=== PATIENT | female | born 1980 | race Native Hawaiian/Other Pacific Islander ===

== ENCOUNTER 2016-12-10 11:50 | Inpatient (IN) | payer OTHER ==
[2016-12-10] VITALS (14 sets, daily range): BP systolic 92–154; BP diastolic 55–90
[~2016-12-10] VITALS: Ht 162.6 cm; Wt 134.3 kg
[~2016-12-10 11:50] MED LIST: ALBU18HF2 IH; ALLO100T PO; ASPI81TA2 PO; CANA100T PO; CHOL10002 PO; FURO40TA5 PO; LOSA50TA21 PO; METO50TA3 PO; NIFE30TA26 PO; POTA8TAB8 PO; PRAM0.253 PO; TRAM50TA2 PO
[2016-12-10] MEDS ORDERED: ALBUTEROL FS 2.5 MG/3 ML VIAL.NEB CONTNEB ONE (12:00)
[2016-12-10] MEDS ORDERED: IPRATROPIUM NEB FS 0.5 MG/2.5 ML AMPUL.NEB NEB ONE (12:00)
[2016-12-10] MEDS ORDERED: ALBUTEROL FS 2.5 MG/3 ML VIAL.NEB ONE (12:12)
[2016-12-10] MEDS ORDERED: IPRATROPIUM NEB FS 0.5 MG/2.5 ML AMPUL.NEB ONE (12:13)
[2016-12-10] MEDS ORDERED: FUROSEMIDE 40 MG/4 ML VIAL ONE ×2 (12:13→12:16)
[2016-12-10 12:20] LABS: BASOPHILS # (AUTO) 0.1 /CMM (0.0-0.2); BASOPHILS % (AUTO) 0.5 % (0.0-2.0); DIFF TOTAL % 100 %; EOSINOPHILS # (AUTO) 0.6 /CMM (0.0-0.7); HEMATOCRIT 45 % (33-45); HEMOGLOBIN 13.4 g/dL (11.5-14.8); LYMPHOCYTES # (AUTO) 1.4 /CMM (0.8-4.8); LYMPHOCYTES % (AUTO) 12.3 % (20.0-44.0); MEAN CORPUSCULAR HEMOGLOBIN 22 PG (26.0-33.0); MEAN CORPUSCULAR HGB CONC 30 g/dl (31.0-36.0); MEAN CORPUSCULAR VOLUME 75 fL (82-100); MONOCYTES # (AUTO) 0.9 /CMM (0.1-1.30); NEUTROPHILS # (AUTO) 8.1 /CMM (1.8-8.9); NEUTROPHILS % (AUTO) 74.2 % (43.0-81.0); PLATELET COUNT (AUTO) 265 /CMM (150-450); RED BLOOD CELL COUNT(AUTO) 6.03 MIL/uL (4.0-5.2); WHITE BLOOD COUNT (AUTO) 11.1 K/uL (4.3-11.0)
[2016-12-10] MEDS ORDERED: FUROSEMIDE 40 MG/4 ML VIAL IV ONE (12:30)
[2016-12-10 12:31] LABS: ANION GAP 11 (5-14); CALCIUM, SERUM 8.8 mg/dL (8.5-10.1); CARBON DIOXIDE 30 mmol/L (21-32); CHLORIDE 103 mmol/L (98-107); CREATININE 0.7 mg/dL (0.6-1.3); GFR 94 mL/min (>60); GLUCOSE 162 mg/dL (74-106); POTASSIUM 3.6 mmol/L (3.5-5.1); SODIUM SERUM 140 mmol/L (136-145); UREA NITROGEN, BLOOD 11 mg/dL (7-18)
[2016-12-10 12:34] LABS: INR 0.99 (0.87-1.13); PROTHROMBIN TIME 10.4 SECS (9.5-12.7)
[2016-12-10 12:38] LABS: TROPONIN I < 0.017 ng/mL (0.00-0.056)
[2016-12-10 12:43] LABS: ALANINE AMINOTRANSFERASE 19 U/L (12-78); ALBUMIN 3.6 g/dL (3.4-5.0); ASPARTATE AMINOTRANSFERASE 13 U/L (15-37); BILIRUBIN,DIRECT 0.1 mg/dL (0.0-0.2); BILIRUBIN,TOTAL 0.5 mg/dL (0.2-1.0); INDIRECT BILIRUBIN 0.4 mg/dL (0.0-1.1); TOTAL PROTEIN, SERUM 8.3 g/dL (6.4-8.2)
[2016-12-10] MEDS ORDERED: PRAM0.253 PO (12:45)
[2016-12-10] MEDS ORDERED: DAPA10TA PO (12:45)
[2016-12-10] MEDS ORDERED: FAMO20TA8 PO (12:45)
[2016-12-10] MEDS ORDERED: METF10002 PO (12:45)
[2016-12-10 12:53] LABS: ABG BASE EXCESS 2.6 mmol/L; ABG HCO3 28.7 mmol/L; ABG PCO2 50.4 mmHg (35.0-45.0); ABG PH 7.374 (7.350-7.450); ABG PO2 403.5 mmHg (75.0-100.0); ABG TOTAL HEMOGLOBIN 13.8 G/dL (12.0-16.0); ALLEN TEST Pass; AaDO2 259.1 mmHg; O2Hb 97.5 % (94.0-97.0)
[2016-12-10 13:13] LABS: LACTIC ACID 2.5 mmol/L (0.4-2.0)
[2016-12-10 13:18] LABS: *LACTIC ACID REFLEX FLAG YES
[2016-12-10] MEDS ORDERED: ONDANSETRON HCL/PF 4 MG/2 ML VIAL IVP PRN (15:00)
[2016-12-10] MEDS ORDERED: ALBUTEROL SULFATE 8 GM HFA.AER.AD IH PRN (15:00)
[2016-12-10] MEDS: TRAMADOL HCL 50 MG TABLET PO PRN (15:36)
[2016-12-10] MEDS: ENOXAPARIN SODIUM 40 MG/0.4 ML DISP.SYRIN SQ SCH (15:37)
[2016-12-10 15:59] LABS: ABG BASE EXCESS 5.9 mmol/L; ABG HCO3 31.6 mmol/L; ABG PCO2 50.3 mmHg (35.0-45.0); ABG PH 7.416 (7.350-7.450); ABG PO2 57.8 mmHg (75.0-100.0); ABG TOTAL HEMOGLOBIN 13.6 G/dL (12.0-16.0); ALLEN TEST Pass; AaDO2 198.6 mmHg; O2Hb 87.1 % (94.0-97.0)
[2016-12-10] MEDS: ALBUTEROL HALF STRENGTH 1.25 MG/3 ML VIAL.NEB NEB SCH ×3 (16:03→23:27)
[2016-12-10] MEDS: IPRATROPIUM NEB FS 0.5 MG/2.5 ML AMPUL.NEB NEB SCH ×3 (16:03→23:27)
[2016-12-10] MEDS: ACETAMINOPHEN 325 MG TABLET PO PRN (17:01)
[2016-12-10] MEDS: methylPREDNISolone SOD SUCC 125 MG/2ML VIAL IV SCH (17:02)
[2016-12-10] MEDS: METOPROLOL TARTRATE 50 MG TABLET PO SCH (17:02)
[2016-12-10] MEDS ORDERED: IV SET PRIMARY PUMP SET 1 EA INFUS.SET MC ONE (17:04)
[2016-12-10] MEDS: LEVOFLOXACIN 500 MG /D5W 100ML 100 ML IV SCH (17:07)
[2016-12-11] VITALS (17 sets, daily range): BP systolic 90–124; BP diastolic 5–90
[2016-12-11] MEDS: IPRATROPIUM NEB FS 0.5 MG/2.5 ML AMPUL.NEB NEB SCH ×6 (04:04→23:39)
[2016-12-11] MEDS: ALBUTEROL HALF STRENGTH 1.25 MG/3 ML VIAL.NEB NEB SCH ×6 (04:04→23:39)
[2016-12-11 04:54] LABS: ALBUMIN 3.4 g/dL (3.4-5.0); BILIRUBIN,TOTAL 0.5 mg/dL (0.2-1.0); CALCIUM, SERUM 8.5 mg/dL (8.5-10.1); CREATININE 0.9 mg/dL (0.6-1.3); PHOSPHORUS 4.6 mg/dL (2.5-4.9)
[2016-12-11 04:59] LABS: BASOPHILS % (AUTO) 0.4 % (0.0-2.0); DIFF TOTAL % 100 %; EOSINOPHILS % (AUTO) 0.1 % (0.0-6.0); HEMATOCRIT 43 % (33-45); HEMOGLOBIN 13.1 g/dL (11.5-14.8); LYMPHOCYTES % (AUTO) 9.6 % (20.0-44.0); MEAN CORPUSCULAR HEMOGLOBIN 23 PG (26.0-33.0); MEAN CORPUSCULAR HGB CONC 31 g/dl (31.0-36.0); MEAN CORPUSCULAR VOLUME 74 fL (82-100); MONOCYTES # (AUTO) 0.6 /CMM (0.1-1.30); MONOCYTES % (AUTO) 5.8 % (2.0-12.0); NEUTROPHILS # (AUTO) 9.2 /CMM (1.8-8.9); NEUTROPHILS % (AUTO) 84.1 % (43.0-81.0); PLATELET COUNT (AUTO) 297 /CMM (150-450); RED BLOOD CELL COUNT(AUTO) 5.83 MIL/uL (4.0-5.2); WHITE BLOOD COUNT (AUTO) 10.9 K/uL (4.3-11.0)
[2016-12-11 05:37] LABS: ANISOCYTOSIS 1+; HYPOCHROMASIA 1+
[2016-12-11 05:48] LABS: INR 0.96 (0.87-1.13); PROTHROMBIN TIME 10.4 SECS (9.5-12.7)
[2016-12-11] MEDS: TRAMADOL HCL 50 MG TABLET PO PRN (06:12)
[2016-12-11] MEDS: PANTOPRAZOLE 40 MG VIAL IV SCH (08:38)
[2016-12-11] MEDS: methylPREDNISolone SOD SUCC 125 MG/2ML VIAL IV SCH ×2 (08:38→17:05)
[2016-12-11] MEDS: ALLOPURINOL 100 MG TABLET PO SCH (08:38)
[2016-12-11] MEDS: LOSARTAN POTASSIUM 50 MG TABLET PO SCH (08:39)
[2016-12-11] MEDS: ASPIRIN 81 MG TAB.CHEW PO SCH (08:39)
[2016-12-11] MEDS: NIFEdipine XL (30MG) 30 MG TAB PO SCH (08:39)
[2016-12-11] MEDS: METOPROLOL TARTRATE 50 MG TABLET PO SCH ×2 (08:39→16:38)
[2016-12-11] MEDS ORDERED: DEXTROSE 50%-WATER 50 ML DISP.SYRIN IV PRN (10:00)
[2016-12-11] MEDS: BLOOD SUGAR DIAGNOSTIC 1 EACH STRIP IN SCH ×3 (11:37→22:59)
[2016-12-11] MEDS: INSULIN REGULAR, HUMAN 100 UNIT/ML 3 ML VIAL SQ PRN ×3 (11:39→22:59)
[2016-12-11] MEDS: LEVOFLOXACIN 500 MG /D5W 100ML 100 ML IV SCH (17:05)
[2016-12-11 19:16] LABS: BAND % (MANUAL) 1 % (0.0-5.0); EOSINOPHILS % (MANUAL) 0 % (0-4); LYMPHOCYTES % (MANUAL) 8 % (16-48)
[2016-12-11 19:17] LABS: BASOPHILS % (MANUAL) 0 % (0.0-2.0); PLATELET ESTIMATE ADEQUATE
[2016-12-11] MEDS: FUROSEMIDE 40 MG TABLET PO SCH (20:17)
[2016-12-11] MEDS: ENOXAPARIN SODIUM 40 MG/0.4 ML DISP.SYRIN SQ SCH (20:20)
[2016-12-11] MEDS: ACETAMINOPHEN 325 MG TABLET PO PRN (22:59)
[2016-12-12] VITALS (15 sets, daily range): BP systolic 95–140; BP diastolic 48–78
[2016-12-12] MEDS: ALBUTEROL HALF STRENGTH 1.25 MG/3 ML VIAL.NEB NEB SCH ×6 (03:56→23:29)
[2016-12-12] MEDS: IPRATROPIUM NEB FS 0.5 MG/2.5 ML AMPUL.NEB NEB SCH ×6 (03:56→23:29)
[2016-12-12 05:28] LABS: CALCIUM, SERUM 8.5 mg/dL (8.5-10.1); CREATININE 0.9 mg/dL (0.6-1.3); PHOSPHORUS 4.2 mg/dL (2.5-4.9); POTASSIUM 4.1 mmol/L (3.5-5.1)
[2016-12-12 05:39] LABS: BASOPHILS % (AUTO) 0.3 % (0.0-2.0); DIFF TOTAL % 100 %; HEMATOCRIT 39 % (33-45); HEMOGLOBIN 12.1 g/dL (11.5-14.8); LYMPHOCYTES # (AUTO) 1.7 /CMM (0.8-4.8); LYMPHOCYTES % (AUTO) 12.3 % (20.0-44.0); MEAN CORPUSCULAR HEMOGLOBIN 23 PG (26.0-33.0); MEAN CORPUSCULAR HGB CONC 31 g/dl (31.0-36.0); MEAN CORPUSCULAR VOLUME 74 fL (82-100); MONOCYTES % (AUTO) 7.8 % (2.0-12.0); NEUTROPHILS # (AUTO) 10.7 /CMM (1.8-8.9); NEUTROPHILS % (AUTO) 79.6 % (43.0-81.0); PLATELET COUNT (AUTO) 306 /CMM (150-450); RED BLOOD CELL COUNT(AUTO) 5.36 MIL/uL (4.0-5.2); WHITE BLOOD COUNT (AUTO) 13.4 K/uL (4.3-11.0)
[2016-12-12 06:17] LABS: ANISOCYTOSIS 1+; BASOPHILS % (MANUAL) 0 % (0.0-2.0); EOSINOPHILS % (MANUAL) 0 % (0-4); HYPOCHROMASIA 1+; LYMPHOCYTES % (MANUAL) 11 % (16-48); PLATELET ESTIMATE ADEQUATE
[2016-12-12] MEDS: PANTOPRAZOLE 40 MG VIAL IV SCH (08:48)
[2016-12-12] MEDS: BLOOD SUGAR DIAGNOSTIC 1 EACH STRIP IN SCH ×4 (08:48→21:53)
[2016-12-12] MEDS: LOSARTAN POTASSIUM 50 MG TABLET PO SCH (08:49)
[2016-12-12] MEDS: FUROSEMIDE 40 MG TABLET PO SCH ×2 (08:49→16:16)
[2016-12-12] MEDS: ALLOPURINOL 100 MG TABLET PO SCH (08:49)
[2016-12-12] MEDS: methylPREDNISolone SOD SUCC 125 MG/2ML VIAL IV SCH ×2 (08:49→16:16)
[2016-12-12] MEDS: NIFEdipine XL (30MG) 30 MG TAB PO SCH (08:49)
[2016-12-12] MEDS: ASPIRIN 81 MG TAB.CHEW PO SCH (08:49)
[2016-12-12 11:11] LABS: ABG BASE EXCESS 5.6 mmol/L; ABG HCO3 33.1 mmol/L; ABG PCO2 61.8 mmHg (35.0-45.0); ABG PH 7.347 (7.350-7.450); ABG PO2 64.7 mmHg (75.0-100.0); ABG TOTAL HEMOGLOBIN 13.4 G/dL (12.0-16.0); ALLEN TEST Pass; AaDO2 178.6 mmHg; O2Hb 89.2 % (94.0-97.0)
[2016-12-12] MEDS: INSULIN REGULAR, HUMAN 100 UNIT/ML 3 ML VIAL SQ PRN ×3 (11:54→21:54)
[2016-12-12] MEDS: TRAMADOL HCL 50 MG TABLET PO PRN ×2 (16:16→22:25)
[2016-12-12] MEDS: LEVOFLOXACIN 500 MG /D5W 100ML 100 ML IV SCH (16:40)
[2016-12-12] MEDS: ENOXAPARIN SODIUM 40 MG/0.4 ML DISP.SYRIN SQ SCH (21:55)
[2016-12-13] VITALS: BP_SYST 140; BP_DIAS 53; BP_DIAS 63
[2016-12-13] MEDS: IPRATROPIUM NEB FS 0.5 MG/2.5 ML AMPUL.NEB NEB SCH ×6 (03:10→23:24)
[2016-12-13] MEDS: ALBUTEROL HALF STRENGTH 1.25 MG/3 ML VIAL.NEB NEB SCH ×6 (03:10→23:24)
[2016-12-13 04:00] VITALS: BP 123/75
[2016-12-13] MEDS: BLOOD SUGAR DIAGNOSTIC 1 EACH STRIP IN SCH ×4 (06:42→22:34)
[2016-12-13] MEDS: methylPREDNISolone SOD SUCC 125 MG/2ML VIAL IV SCH ×2 (08:42→17:22)
[2016-12-13] MEDS: ASPIRIN 81 MG TAB.CHEW PO SCH (08:42)
[2016-12-13] MEDS: ALLOPURINOL 100 MG TABLET PO SCH (08:42)
[2016-12-13] MEDS: FUROSEMIDE 40 MG TABLET PO SCH ×2 (08:42→17:23)
[2016-12-13] MEDS: PANTOPRAZOLE 40 MG VIAL IV SCH (08:42)
[2016-12-13] MEDS: LOSARTAN POTASSIUM 50 MG TABLET PO SCH (08:43)
[2016-12-13] MEDS: NIFEdipine XL (30MG) 30 MG TAB PO SCH (08:43)
[2016-12-13 09:59] VITALS: BP 121/70
[2016-12-13] MEDS: LEVOFLOXACIN 500 MG /D5W 100ML 100 ML IV SCH (17:24)
[2016-12-13] MEDS: INSULIN REGULAR, HUMAN 100 UNIT/ML 3 ML VIAL SQ PRN ×2 (17:32→22:37)
[2016-12-13] MEDS: ENOXAPARIN SODIUM 40 MG/0.4 ML DISP.SYRIN SQ SCH (22:00)
[2016-12-14] MEDS: ALBUTEROL HALF STRENGTH 1.25 MG/3 ML VIAL.NEB NEB SCH ×6 (03:29→23:04)
[2016-12-14] MEDS: IPRATROPIUM NEB FS 0.5 MG/2.5 ML AMPUL.NEB NEB SCH ×6 (03:30→23:04)
[2016-12-14 04:00] VITALS: BP 121/70
[2016-12-14 08:00] VITALS: BP 128/83
[2016-12-14] MEDS: PANTOPRAZOLE 40 MG VIAL IV SCH (08:51)
[2016-12-14] MEDS: ALLOPURINOL 100 MG TABLET PO SCH (08:52)
[2016-12-14] MEDS: FUROSEMIDE 40 MG TABLET PO SCH ×2 (08:52→17:07)
[2016-12-14] MEDS: LOSARTAN POTASSIUM 50 MG TABLET PO SCH (08:52)
[2016-12-14] MEDS: methylPREDNISolone SOD SUCC 125 MG/2ML VIAL IV SCH ×2 (08:52→17:08)
[2016-12-14] MEDS: ASPIRIN 81 MG TAB.CHEW PO SCH (08:53)
[2016-12-14] MEDS: NIFEdipine XL (30MG) 30 MG TAB PO SCH (08:53)
[2016-12-14] MEDS: BLOOD SUGAR DIAGNOSTIC 1 EACH STRIP IN SCH ×4 (08:53→21:58)
[2016-12-14] MEDS: INSULIN REGULAR, HUMAN 100 UNIT/ML 3 ML VIAL SQ PRN ×2 (12:43→22:00)
[2016-12-14 16:00] VITALS: BP 126/80
[2016-12-14] MEDS ORDERED: IV SET PRIMARY PUMP SET 1 EA INFUS.SET MC ONE (16:33)
[2016-12-14] MEDS: LEVOFLOXACIN 500 MG /D5W 100ML 100 ML IV SCH (17:08)
[2016-12-14 20:00] VITALS: BP 131/86
[2016-12-14] MEDS: ENOXAPARIN SODIUM 40 MG/0.4 ML DISP.SYRIN SQ SCH (21:46)
[2016-12-15] MEDS: IPRATROPIUM NEB FS 0.5 MG/2.5 ML AMPUL.NEB NEB SCH ×4 (03:30→14:38)
[2016-12-15] MEDS: ALBUTEROL HALF STRENGTH 1.25 MG/3 ML VIAL.NEB NEB SCH ×4 (03:30→14:38)
[2016-12-15] MEDS: TRAMADOL HCL 50 MG TABLET PO PRN (03:56)
[2016-12-15 04:00] VITALS: BP 140/86
[2016-12-15] MEDS ORDERED: SECONDARY IV SET 1 EA INFUS.SET MC ONE (04:41)
[2016-12-15] MEDS: BLOOD SUGAR DIAGNOSTIC 1 EACH STRIP IN SCH ×3 (06:41→17:01)
[2016-12-15 08:00] VITALS: BP 119/76
[2016-12-15] MEDS: methylPREDNISolone SOD SUCC 125 MG/2ML VIAL IV SCH ×2 (09:11→17:00)
[2016-12-15] MEDS: ASPIRIN 81 MG TAB.CHEW PO SCH (09:11)
[2016-12-15] MEDS: PANTOPRAZOLE 40 MG VIAL IV SCH (09:11)
[2016-12-15] MEDS: FUROSEMIDE 40 MG TABLET PO SCH ×2 (09:12→17:00)
[2016-12-15] MEDS: LOSARTAN POTASSIUM 50 MG TABLET PO SCH (09:12)
[2016-12-15] MEDS: NIFEdipine XL (30MG) 30 MG TAB PO SCH (09:12)
[2016-12-15] MEDS: ALLOPURINOL 100 MG TABLET PO SCH (09:12)
[2016-12-15] MEDS ORDERED: LEVO750T21 PO (11:20)
[2016-12-15] MEDS ORDERED: PRED20TA PO (11:20)
[2016-12-15 12:32] LABS: BASOPHILS # (AUTO) 0.2 /CMM (0.0-0.2); BASOPHILS % (AUTO) 0.9 % (0.0-2.0); DIFF TOTAL % 100 %; EOSINOPHILS # (AUTO) 0.1 /CMM (0.0-0.7); EOSINOPHILS % (AUTO) 0.3 % (0.0-6.0); HEMATOCRIT 44 % (33-45); HEMOGLOBIN 13.5 g/dL (11.5-14.8); LYMPHOCYTES # (AUTO) 1.8 /CMM (0.8-4.8); LYMPHOCYTES % (AUTO) 9.2 % (20.0-44.0); MEAN CORPUSCULAR HEMOGLOBIN 22 PG (26.0-33.0); MEAN CORPUSCULAR HGB CONC 31 g/dl (31.0-36.0); MEAN CORPUSCULAR VOLUME 72 fL (82-100); MONOCYTES % (AUTO) 4.9 % (2.0-12.0); NEUTROPHILS # (AUTO) 16.6 /CMM (1.8-8.9); NEUTROPHILS % (AUTO) 84.7 % (43.0-81.0); PLATELET COUNT (AUTO) 263 /CMM (150-450); RED BLOOD CELL COUNT(AUTO) 6.06 MIL/uL (4.0-5.2); WHITE BLOOD COUNT (AUTO) 19.5 K/uL (4.3-11.0)
[2016-12-15 12:55] LABS: BAND % (MANUAL) 1 % (0.0-5.0); LYMPHOCYTES % (MANUAL) 6 % (16-48); PLATELET ESTIMATE ADEQUATE
[2016-12-15 12:56] LABS: ANISOCYTOSIS 1+; HYPOCHROMASIA 1+
[2016-12-15 16:00] VITALS: BP 112/55
[2016-12-15] MEDS: LEVOFLOXACIN 500 MG /D5W 100ML 100 ML IV SCH (17:00)
== END 2016-12-15 17:25 | disposition home or self-care (01) | DRG 133 ==
LOC: ER 11:52 → ICU 13:28 → TELE1 12-12 17:50 → MEDSG1 12-14 09:05
PROVIDERS: ADMIT Internal Medicine; ATTEND Internal Medicine
PROC: 5A09357 Assistance with Respiratory Ventilation, Less than 24 Consecutive Hours, Continuous Positive Airway Pressure (ICD-10-PCS; principal; 2016-12-11)
PROC: 5A09357 Assistance with Respiratory Ventilation, Less than 24 Consecutive Hours, Continuous Positive Airway Pressure (ICD-10-PCS; 2016-12-12)
DX: J96.21 Acute and chronic respiratory failure with hypoxia (principal); E43 Unspecified severe protein-calorie malnutrition; I50.33 Acute on chronic diastolic (congestive) heart failure; E88.81 Metabolic syndrome and other insulin resistance; J44.0 Chronic obstructive pulmonary disease with (acute) lower respiratory infection; E11.9 Type 2 diabetes mellitus without complications; J96.22 Acute and chronic respiratory failure with hypercapnia; K21.9 Gastro-esophageal reflux disease without esophagitis; J44.1 Chronic obstructive pulmonary disease with (acute) exacerbation; J20.9 Acute bronchitis, unspecified; E78.5 Hyperlipidemia, unspecified; E66.2 Morbid (severe) obesity with alveolar hypoventilation; Z68.43 Body mass index [BMI] 50.0-59.9, adult; I11.0 Hypertensive heart disease with heart failure; J45.909 Unspecified asthma, uncomplicated; G25.81 Restless legs syndrome; M10.9 Gout, unspecified
CPT/HCPCS: 36415; 36600; 71010-TC; 80048-TC; 80053-TC; 80076-TC; 82962-TC; 83605-TC; 83735-TC; 83880; 84100-TC; 84484-TC; 85025-TC; 85610-TC; 85730-TC; 87040-TC; 87081-TC; 94799-TC; A4606; C9113; J1650; J1815; J1940; J1956; J2405; J2930; Z7610

== ENCOUNTER 2017-03-02 12:59 | Inpatient (IN) | payer OTHER ==
[~2017-03-02] VITALS: Ht 162.6 cm; Wt 134.4 kg
[~2017-03-02 12:59] MED LIST changes: -CANA100T PO; +DAPA10TA PO; +FAMO20TA8 PO; +LEVO750T21 PO; +METF10002 PO; +PRED20TA PO
--- NOTE | 2017-03-02 13:02 | NUR ---
PT TO ER BED 11 C/O WORSENING SOB X 3 DAYS. HX OF COPD AND CHF. PT ALSO C/O COUGH. EXPIRATORY WHEEZING NOTED UPON AUSCULTATION. GOWNED AND PLACED ON MONITOR. SATTING IN HIGH 80'S. PLACED ON O2@3L/MIN SATTING AT 92%. PT IS AAO, SPEAKING IN FULL SENTENCES. AWAITING MD CABRERA.
--- NOTE | 2017-03-02 13:18 | NUR ---
CHICHI NGUYEN AT BEDSIDE FOR EVAL.
[2017-03-02] MEDS ORDERED: Magnesium 1GM/D5W 100ML PREMIX 200 ML IV ONE ×2 (13:23→13:34)
[2017-03-02] MEDS ORDERED: methylPREDNISolone SOD SUCC 125 MG/2ML VIAL IV ONE (13:30)
[2017-03-02] MEDS ORDERED: ALBUTEROL FS 2.5 MG/3 ML VIAL.NEB CONTNEB ONE (13:30)
[2017-03-02] MEDS ORDERED: IV SET PRIMARY PUMP SET 1 EA INFUS.SET MC ONE (13:33)
[2017-03-02] MEDS ORDERED: methylPREDNISolone SOD SUCC 125 MG/2ML VIAL ONE (13:33)
[2017-03-02 13:36] LABS: BASOPHILS % (AUTO) 0.2 % (0.0-2.0); EOSINOPHILS # (AUTO) 0.2 /CMM (0.0-0.7); EOSINOPHILS % (AUTO) 1.6 % (0.0-6.0); HEMATOCRIT 43 % (33-45); HEMOGLOBIN 13.4 g/dL (11.5-14.8); LYMPHOCYTES # (AUTO) 0.9 /CMM (0.8-4.8); LYMPHOCYTES % (AUTO) 8.8 % (20.0-44.0); MEAN CORPUSCULAR HEMOGLOBIN 23 PG (26.0-33.0); MEAN CORPUSCULAR HGB CONC 32 g/dl (31.0-36.0); MEAN CORPUSCULAR VOLUME 74 fL (82-100); MONOCYTES # (AUTO) 1.3 /CMM (0.1-1.30); MONOCYTES % (AUTO) 12.6 % (2.0-12.0); NEUTROPHILS # (AUTO) 7.9 /CMM (1.8-8.9); NEUTROPHILS % (AUTO) 76.8 % (43.0-81.0); PLATELET COUNT (AUTO) 219 /CMM (150-450); RED BLOOD CELL COUNT(AUTO) 5.77 MIL/uL (4.0-5.2); WHITE BLOOD COUNT (AUTO) 10.3 K/uL (4.3-11.0)
--- NOTE | 2017-03-02 13:38 | NUR ---
RADIOLOGY AT BEDSIDE FOR CHEST XRAY.
[2017-03-02 13:48] LABS: CALCIUM, SERUM 8.8 mg/dL (8.5-10.1); CARBON DIOXIDE 28 mmol/L (21-32); CHLORIDE 99 mmol/L (98-107); CREATININE 0.9 mg/dL (0.6-1.3); GFR 70 mL/min (>60); GLUCOSE 144 mg/dL (74-106); POTASSIUM 3.5 mmol/L (3.5-5.1); SODIUM SERUM 136 mmol/L (136-145); UREA NITROGEN, BLOOD 14 mg/dL (7-18)
[2017-03-02] MEDS ORDERED: ALBUTEROL FS 2.5 MG/3 ML VIAL.NEB ONE ×2 (13:51→22:58)
[2017-03-02 13:55] LABS: TROPONIN I < 0.017 ng/mL (0.00-0.056)
[2017-03-02 13:56] LABS: INR 0.96 (0.87-1.13); PROTHROMBIN TIME 10.3 SECS (9.5-12.7)
[2017-03-02 13:59] LABS: ALANINE AMINOTRANSFERASE 35 U/L (12-78); ALBUMIN 3.7 g/dL (3.4-5.0); ALKALINE PHOSPHATASE 80 U/L (46-116); ASPARTATE AMINOTRANSFERASE 22 U/L (15-37); B-TYPE NATRIURETIC PEPTIDE 111 PG/ML (0-125); BILIRUBIN,DIRECT 0.4 mg/dL (0.0-0.2); BILIRUBIN,TOTAL 1.1 mg/dL (0.2-1.0); TOTAL PROTEIN, SERUM 8.5 g/dL (6.4-8.2)
[2017-03-02] MEDS ORDERED: IV NS 0.9% 500 ML BAG IV ONE (14:30)
[2017-03-02] MEDS ORDERED: LEVOFLOXACIN (750 MG) 750 MG TABLET PO STA (15:31)
[2017-03-02] MEDS ORDERED: ACETAMINOPHEN 325 MG TABLET PO STA (15:31)
[2017-03-02] MEDS ORDERED: LEVOFLOXACIN (750 MG) 750 MG TABLET ONE (15:33)
[2017-03-02] MEDS ORDERED: FUROSEMIDE 40 MG/4 ML VIAL ONE (15:34)
[2017-03-02] MEDS ORDERED: ACETAMINOPHEN ES 500 MG TABLET ONE (15:34)
--- NOTE | 2017-03-02 15:34 | NUR ---
PAGED DR CONTE PACKER FUSER FOR [facility]
[2017-03-02 15:58] LABS: ANISOCYTOSIS 1+; BAND % (MANUAL) 4 % (0.0-5.0); LYMPHOCYTES % (MANUAL) 17 % (16-48); MONOCYTES % (MANUAL) 9 % (0-11.0); NEUTROPHILS % (MANUAL) 70 (42-76); PLATELET ESTIMATE ADEQUATE
[2017-03-02] MEDS ORDERED: FUROSEMIDE 40 MG/4 ML VIAL IV ONE (16:00)
[2017-03-02] MEDS ORDERED: ACETAMINOPHEN 325 MG TABLET PO PRN (17:00)
[2017-03-02] MEDS ORDERED: ONDANSETRON HCL/PF 4 MG/2 ML VIAL IVP PRN (17:00)
--- NOTE | 2017-03-02 17:17 | NUR ---
PT ASSIGNED M/S [facility]
--- NOTE | 2017-03-02 18:04 | NUR ---
REPORT GIVEN TO HUSSEIN. PT AWAITING TRANSFER TO FLOOR.
--- NOTE | 2017-03-02 18:35 | NUR ---
MS RN NOTES RECEIVED PATIENT FROM ER VIA REBECCA DIAS. TRANSFERRED TO THE BED, PT IS C/O SOB, BREATHING TX GIVEN. WITH O2 AT 2LPM VIA NC. V/S CHECKED AND RECORDED. ENDORSED TO THE INTELLECTUAL PROPERTY LEGAL ASSISTANT FOR CONTINUITY OF CARE.
[2017-03-02] MEDS: IPRATROPIUM NEB FS 0.5 MG/2.5 ML AMPUL.NEB NEB SCH ×2 (18:47→19:30)
[2017-03-02] MEDS: ALBUTEROL FS 2.5 MG/0.5 ML VIAL.NEB NEB SCH ×2 (18:47→19:30)
[2017-03-02 18:50] VITALS: BP 142/61
[2017-03-02] MEDS: methylPREDNISolone SOD SUCC 125 MG/2ML VIAL IV SCH (19:15)
[2017-03-02] MEDS: FUROSEMIDE 40 MG TABLET PO SCH (19:15)
--- NOTE | 2017-03-02 20:15 | NUR ---
RN NOTE: PATIENT SITTING UP IN CHAIR, NO ACUTE DISTRESS NOTED. BREATHING EVEN AND LABORED, WITH SOB. PATIENT JUST FINISHED BREATHING TREATMENT. IV TO RIGHT UPPER ARM WAS ACCIDENTALLY PULLED OUT. REVIEWED ADMIT ORDERS AND PATIENT WAS TO BE ADMITTED TO TELE FLOOR AND TO CONTINUE WITH BIPAP AT BEDTIME. INFORMED NURSING LGSW THAT PATIENT SHOULD BE TRANSFERRED OFF MS FLOOR AND THAT NEEDS TO CONTINUE WITH BIPAP AND THAT NEEDS TO BE STARTED IN [facility]. CALLED [facility] TO CLARIFY ADMIT ORDER, SPOKE TO WAYLON COOPER NP AND INFORMED THAT PATIENT WAS ORDERED TO CONTINUE WITH BIPAP AND IF OK TO TRANSFER PATIENT TO [facility]. OK TO TRANSFER PATIENT TO [facility]. INFORMED NURSING LGSW ABOUT PATIENT NEEDING BIPAP AND TO BE IN [place] VERSUS TELE FLOOR. WILL CALL BACK WITH BED ASSIGNMENT. WILL CONTINUE TO MONITOR.
[2017-03-02] MEDS: ENOXAPARIN SODIUM 40 MG/0.4 ML DISP.SYRIN SQ SCH (21:20)
[2017-03-02] MEDS: ASPIRIN 81 MG TAB.CHEW PO SCH (21:20)
[2017-03-02] MEDS: FAMOTIDINE (20 MG) 20 MG TABLET PO SCH (21:21)
[2017-03-02] MEDS: PRAMIPEXOLE DI-HCL 0.25 MG TABLET PO SCH (21:21)
[2017-03-02] MEDS: METOPROLOL TARTRATE 50 MG TABLET PO SCH (21:21)
[2017-03-02] MEDS: ALLOPURINOL 100 MG TABLET PO SCH (21:21)
[2017-03-02] MEDS: LOSARTAN POTASSIUM 50 MG TABLET PO SCH (21:21)
[2017-03-02] MEDS: NIFEdipine XL (30MG) 30 MG TAB PO SCH (21:21)
[2017-03-02] MEDS: CHOLECALCIFEROL 1,000 UNIT TABLET (VIT D3) PO SCH (21:22)
[2017-03-02] MEDS: PANTOPRAZOLE 40 MG TABLET.DR PO SCH (21:22)
[2017-03-02] MEDS: GUAIFENESIN LA 600 MG TABLET.SA PO SCH ×2 (21:22→21:28)
--- NOTE | 2017-03-02 21:30 | NUR ---
RN NOTE: PATIENT 1700 MEDICATIONS ADMINISTERED PER MD ORDER. PATIENT WAS NOT ADMINISTERED ONTO FLOOR TILL 1835 AND PATIENT HAD NOT TAKEN ANY OF HER MEDICATIONS FOR TODAY. VITAL SIGNS STABLE, WILL CONTINUE TO MONITOR.
[2017-03-02] MEDS ORDERED: PRAMIPEXOLE DI-HCL 0.25 MG TABLET PO SCH (22:00)
--- NOTE | 2017-03-02 22:30 | NUR ---
RN NOTE: CALLED NURSING HORSER UP TO FOLLOW UP ON ROOM FOR PATIENT, PER QUYNH, PATIENT DOES NOT NEED TO BE IN IVDA TO INITIATE BIPAP IF PATIENT IS ALREADY ON BIPAP AT HOME. PER QUYNH, CONFIRMED WITH KRYSTINA THAT PATIENT CAN BE ON TELE ROOM. PATIENT ASSIGNED TO ROOM 312-1, REPORT GIVEN TO VADIM. PATIENT TRANSFERRED USING ACLS PROTOCOL WITHOUT COMPLICATIONS. CALLED RT JALEN TO INFORM TO START BIPAP FOR PATIENT IN ROOM 312-1.
--- NOTE | 2017-03-02 22:44 | NUR ---
RT NOTES: Breathing treatment given by the Nurse at 18:47 due to shortness of breath. Cancelled 19:30 treatment order due to early administration by the Nurse at 18:47.
[2017-03-02] MEDS ORDERED: ALBUTEROL FS 2.5 MG/3 ML VIAL.NEB NEB STA (22:57)
[2017-03-02] MEDS ORDERED: IPRATROPIUM NEB FS 0.5 MG/2.5 ML AMPUL.NEB NEB STA (22:57)
[2017-03-02] MEDS ORDERED: IPRATROPIUM NEB FS 0.5 MG/2.5 ML AMPUL.NEB ONE (22:58)
[2017-03-02 23:45] VITALS: BP 122/67
--- NOTE | 2017-03-03 00:17 | NUR ---
MICROBIOLOGY DIRECTOR OPENING OPENING NOTES RECEIVED PATIENT VIA ACLS PROTOCOL PATIENT IN BED, AWAKE/O X 4, AT 2230 03/02/17 WE PUT NEW IV SITE INTACT WITH NO S/S OF INFILTRATION NOTED IJ G 20 TOLERATED PROCEDURE WELL WITH GOOD BLOOD RETURN. NO S/S OF BLEEDING NOTED. NO S/S OF DISTRESS, NO C/O OF CHEST PAIN IN STABLE CONDITION. KEPT CLEAN DRY AND COMFORTABLE. SAFE HAZARD FREE ENVIRONMENT PROVIDED. WILL CONTINUE TO MONITOR PATIENT. PATIENT SET UP WITH BIPAP SETTING IPAP 1M H20, EPAP 5 CM H20 RATE 12 02 40% O2 SAT 96%, TOLERATED PATIENT IS SLEEPING NOW. BREATHING TREATMENT TOLERATED WELL. KEPT CLEAN AND DRY AND COMFORTABLE. ON TELE MONITOR ST Behzad MD MADE AWARE.
[2017-03-03] MEDS: ALBUTEROL FS 2.5 MG/0.5 ML VIAL.NEB NEB SCH ×4 (01:41→19:46)
[2017-03-03] MEDS: IPRATROPIUM NEB FS 0.5 MG/2.5 ML AMPUL.NEB NEB SCH ×4 (01:41→19:45)
[2017-03-03] MEDS: TRAMADOL HCL 50 MG TABLET PO PRN (01:42)
[2017-03-03 05:47] VITALS: BP 134/75
[2017-03-03 06:28] VITALS: BP 134/75
--- NOTE | 2017-03-03 06:29 | NUR ---
SAW REPAIRER CLOSING NOTES IN BED ASLEEP AND EASILY AWAKEN, SEMI FOWLERS POSITION, SKIN WARM AND DRY TO TOUCH, AFEBRILE, BREATHING TREATMENT TOLERATED WELL. ON BIPAP AT NIGHT WITH SETTINGS OF IPAP 10 CM H20 EPAP 5 CM H20 RATE 12 02 40 % NOW ON 3LPM VIA NC O2 SAT AT 94% ALL NURSING CARE NEEDS PROVIDED AND RENDERED, NEEDS ATTENDED AND ANTICIPATED, KEPT CLEAN AND DRY AND COMFORTABLE, BLADDER NOT DISTENDED, CONTINUE WITH CURRENT MEDICATION ORDERED, NO LATE ADVERSE REACTION NOTED/REPORTED. COOPERATIVE TO HER PLAN OF CARE. SAFE HAZARD FREE ENVIRONMENT MAINTAINED. ASSISTED REPOSITIONED EVERY 2 HOURS FOR SKIN MANAGEMENT AND COMFORT. GOOD SKIN CARE PROVIDED. ALL DUE MEDS WAS GIVEN. KEPT AT LOW BED. FREQUENT VISUAL CHECK FOR SAFETY. PLAN OF CARE ORDERED. CALL LIGHT ATTENDED PROMPTLY AND KEPT AT EASY REACH. WILL ENDORSE TO THE NEXT SHIFT CONTINUE PLAN OF CARE. VS STABLE
[2017-03-03 07:07] LABS: BASOPHILS % (AUTO) 0.4 % (0.0-2.0); HEMATOCRIT 43 % (33-45); HEMOGLOBIN 13.5 g/dL (11.5-14.8); LYMPHOCYTES # (AUTO) 0.8 /CMM (0.8-4.8); LYMPHOCYTES % (AUTO) 12.1 % (20.0-44.0); MEAN CORPUSCULAR HEMOGLOBIN 23 PG (26.0-33.0); MEAN CORPUSCULAR HGB CONC 31 g/dl (31.0-36.0); MEAN CORPUSCULAR VOLUME 74 fL (82-100); MONOCYTES # (AUTO) 0.9 /CMM (0.1-1.30); MONOCYTES % (AUTO) 13.5 % (2.0-12.0); NEUTROPHILS # (AUTO) 4.9 /CMM (1.8-8.9); PLATELET COUNT (AUTO) 191 /CMM (150-450); RED BLOOD CELL COUNT(AUTO) 5.81 MIL/uL (4.0-5.2); WHITE BLOOD COUNT (AUTO) 6.6 K/uL (4.3-11.0)
--- NOTE | 2017-03-03 07:15 | NUR ---
RN OPEN NOTES RECEIVED REPORT FROM STOCK RANCH SUPERVISOR NURSE. PATIENT IS IN BED, ALERT AND ORIENTED TO NAME, TIME AND PLACE. BED IS IN LOW POSITION, LOCKED AND 2 SIDE RAILS ARE UP. PATIENT IS WHEEZING, RT WAS NOTIFIED. WILL CONTINUE TO ASSESS AND MONITOR PATIENT.
[2017-03-03 08:00] VITALS: BP 107/64
[2017-03-03 08:21] LABS: ALBUMIN 3.5 g/dL (3.4-5.0); BILIRUBIN,TOTAL 0.8 mg/dL (0.2-1.0); CALCIUM, SERUM 8.4 mg/dL (8.5-10.1); CREATININE 0.9 mg/dL (0.6-1.3); MAGNESIUM 2.7 mg/dL (1.8-2.4); POTASSIUM 4.3 mmol/L (3.5-5.1); TOTAL PROTEIN, SERUM 8.5 g/dL (6.4-8.2)
[2017-03-03] MEDS: FAMOTIDINE (20 MG) 20 MG TABLET PO SCH (08:23)
[2017-03-03] MEDS: METOPROLOL TARTRATE 50 MG TABLET PO SCH ×2 (08:24→16:18)
[2017-03-03] MEDS: PANTOPRAZOLE 40 MG TABLET.DR PO SCH (08:25)
[2017-03-03] MEDS: ASPIRIN 81 MG TAB.CHEW PO SCH (08:25)
[2017-03-03] MEDS: CHOLECALCIFEROL 1,000 UNIT TABLET (VIT D3) PO SCH (08:26)
[2017-03-03] MEDS: ALLOPURINOL 100 MG TABLET PO SCH (08:26)
[2017-03-03] MEDS: LOSARTAN POTASSIUM 50 MG TABLET PO SCH (08:26)
[2017-03-03] MEDS: METFORMIN 500 MG TABLET PO SCH ×2 (08:26→16:17)
[2017-03-03] MEDS: FUROSEMIDE 40 MG TABLET PO SCH (08:27)
[2017-03-03] MEDS: GUAIFENESIN LA 600 MG TABLET.SA PO SCH ×2 (08:27→22:00)
[2017-03-03] MEDS: POTASSIUM CHLORIDE 10 MEQ TABLET.SA PO SCH ×2 (08:27→16:16)
[2017-03-03] MEDS: NIFEdipine XL (30MG) 30 MG TAB PO SCH (08:28)
[2017-03-03] MEDS: methylPREDNISolone SOD SUCC 125 MG/2ML VIAL IV SCH ×3 (08:28→16:16)
[2017-03-03 12:00] VITALS: BP 98/65
[2017-03-03] MEDS: FUROSEMIDE 40 MG/4 ML VIAL IV SCH ×2 (12:19→16:16)
[2017-03-03] MEDS ORDERED: DEXTROSE 50%-WATER 50 ML DISP.SYRIN IV PRN (15:30)
[2017-03-03 16:25] VITALS: BP 106/53
[2017-03-03] MEDS: BLOOD SUGAR DIAGNOSTIC 1 EACH STRIP VI SCH ×2 (17:00→22:15)
[2017-03-03] MEDS: INSULIN REGULAR, HUMAN 100 UNIT/ML 3 ML VIAL SQ PRN (17:11)
--- NOTE | 2017-03-03 19:01 | NUR ---
RN CLOSING NOTES PATIENT IS IN BED, ALERT AND ORIENTED TO NAME, TIME AND PLACE. BED IS IN LOW POSITION, LOCKED AND 2 SIDE RAILS ARE UP. NO SIGNS AND SYMPTOMS OF DISTRESS. DENIED PAIN. WILL ENDORSE TO ROTARY BAR OPERATOR NURSE.
--- NOTE | 2017-03-03 19:35 | NUR ---
TELE/RN NOTES RECEIVED PT. LYING IN BED. AWAKE, ALERT AND ORIENTED X4. BREATHING EVEN AND UNLABORED ON 3LPM O2 VIA NC. NO SOB, RESPIRATORY DISTRESS OR COMPLAINTS OF PAIN NOTED. PT. WITH EXTERNAL SAMPLE WASHER PRESENT AND INTACT. CURRENT RHYTHM = SINUS HR 86. PT. WITH RIGHT UPPER ARM MIDLINE PRESENT, PATENT AND INTACT. BED IN LOWEST POSITION, CALL LIGHT WITHIN REACH, WILL CONTINUE TO MONITOR.
[2017-03-03 20:00] VITALS: BP 102/51
[2017-03-03] MEDS: PRAMIPEXOLE DI-HCL 0.25 MG TABLET PO SCH (22:00)
[2017-03-03] MEDS: ENOXAPARIN SODIUM 40 MG/0.4 ML DISP.SYRIN SQ SCH (22:01)
[2017-03-03] MEDS: *INSULIN REGULAR(HUMULIN R)HUM 100 UNIT/ML VIAL SQ PRN (22:17)
[2017-03-04] VITALS (7 sets, daily range): BP systolic 102–132; BP diastolic 52–86
[2017-03-04] MEDS: TRAMADOL HCL 50 MG TABLET PO PRN ×2 (00:50→22:52)
[2017-03-04] MEDS: ALBUTEROL FS 2.5 MG/0.5 ML VIAL.NEB NEB SCH ×4 (01:13→19:53)
[2017-03-04] MEDS: IPRATROPIUM NEB FS 0.5 MG/2.5 ML AMPUL.NEB NEB SCH ×4 (01:13→19:53)
[2017-03-04] MEDS: BLOOD SUGAR DIAGNOSTIC 1 EACH STRIP VI SCH ×4 (06:52→21:11)
--- NOTE | 2017-03-04 07:50 | NUR ---
TELE/RN NOTES PT. LYING IN BED RESTING. BREATHING EVEN AND UNLABORED ON CPAP. NO SOB, RESPIRATORY DISTRESS OR COMPLAINTS OF PAIN NOTED. NO S/S OF HYPO/HYPERGLYCEMIA NOTED. PT. WITH EXTERNAL [employer] RETAILER SALES CONSULTANT PRESENT AND INTACT. CURRENT RHYTHM = SINUS HR 90. PT. WITH RIGHT UPPER ARM MIDLINE PRESENT, PATENT AND INTACT. ALL PT. NEEDS MET. BED IN LOWEST POSITION, CALL LIGHT WITHIN REACH, WILL ENDORSE TO DAYSHIFT NURSE FOR CONTINUITY OF CARE.
--- NOTE | 2017-03-04 08:00 | NUR ---
MOBILE SECURITY SPECIALIST NOTES PT IN BED, AWAKE, ALERT AND ORIENTED, NO COMPLAINT OF PAIN, RESPIRATIONS EVEN AND NOT LABORED, CALL LIGHT WITHIN REACH, NEEDS ATTENDED.
[2017-03-04] MEDS: INSULIN REGULAR, HUMAN 100 UNIT/ML 3 ML VIAL SQ PRN ×3 (08:03→16:56)
[2017-03-04] MEDS: methylPREDNISolone SOD SUCC 125 MG/2ML VIAL IV SCH ×3 (08:50→16:43)
[2017-03-04] MEDS: FUROSEMIDE 40 MG/4 ML VIAL IV SCH ×2 (08:50→16:43)
[2017-03-04] MEDS: NIFEdipine XL (30MG) 30 MG TAB PO SCH (08:51)
[2017-03-04] MEDS: ASPIRIN 81 MG TAB.CHEW PO SCH (08:51)
[2017-03-04] MEDS: CHOLECALCIFEROL 1,000 UNIT TABLET (VIT D3) PO SCH (08:51)
[2017-03-04] MEDS: POTASSIUM CHLORIDE 10 MEQ TABLET.SA PO SCH ×2 (08:52→16:45)
[2017-03-04] MEDS: ALLOPURINOL 100 MG TABLET PO SCH (08:52)
[2017-03-04] MEDS: METFORMIN 500 MG TABLET PO SCH ×2 (08:52→16:42)
[2017-03-04] MEDS: LOSARTAN POTASSIUM 50 MG TABLET PO SCH (08:53)
[2017-03-04] MEDS: FAMOTIDINE (20 MG) 20 MG TABLET PO SCH (08:53)
[2017-03-04] MEDS: GUAIFENESIN LA 600 MG TABLET.SA PO SCH ×2 (08:53→21:11)
[2017-03-04] MEDS: METOPROLOL TARTRATE 50 MG TABLET PO SCH ×2 (08:53→17:00)
[2017-03-04] MEDS: PANTOPRAZOLE 40 MG TABLET.DR PO SCH (08:53)
[2017-03-04 11:53] LABS: CALCIUM, SERUM 8.6 mg/dL (8.5-10.1); CREATININE 1.1 mg/dL (0.6-1.3)
--- NOTE | 2017-03-04 13:00 | NUR ---
CABLE MOCK UP ASSEMBLER NOTES PT IN BED, AWAKE, NO COMPLAINT AT THIS TIME, BREATHING TREATMENT GIVEN BY RT ORDERED, SEEN BY DR. CONTE, PLAN OF CARE EXPLAINED TO PT, VERBALIZED UNDERSTANDING, CALL LIGHT PLACED WITH REACH, NEEDS ATTENDED.
[2017-03-04] MEDS: LEVOFLOXACIN (500MG) 500 MG TABLET PO SCH (16:43)
--- NOTE | 2017-03-04 18:25 | NUR ---
ASSISTANT PROFESSOR NOTES PT IN BED, AWAKE, ALERT AND ORIENTED, VISITED BY FAMILY MEMBERS, NO COMPLAINT OF PAIN, RESPIRATIONS REGULAR AND NOT LABORED, PM MEDS GIVEN, BLOOD SUGAR CHECKED, INSULIN GIVEN PER SLIDING SCALE ORDERED, ALL NEEDS ATTENDED.
--- NOTE | 2017-03-04 20:00 | NUR ---
RECEIVED PATIENT UP IN CHAIR, ALERT AND ORIENTED X4, NO SOB, ON 2LPM VIA NC, 02 SAT 95%, DENIES ANY PAIN AT THIS TIME, ABLE TO TRANSFER TO BED AND CHAIR WITHOUT DIFFICULTY, NEEDS ATTENDED, CALL LIGHT WITHIN REACH.
[2017-03-04] MEDS: PRAMIPEXOLE DI-HCL 0.25 MG TABLET PO SCH (21:11)
[2017-03-04] MEDS: ENOXAPARIN SODIUM 40 MG/0.4 ML DISP.SYRIN SQ SCH (21:12)
[2017-03-04] MEDS: *INSULIN REGULAR(HUMULIN R)HUM 100 UNIT/ML VIAL SQ PRN (21:19)
--- NOTE | 2017-03-04 22:54 | NUR ---
NOTIFIED RT TO SET UP BIPAP. PATIENT COMPLAINING OF PAIN TO BACK OF NECK OF 8/10, GIVEN TRAMADOL, WILL CONTINUE TO MONITOR
[2017-03-05] VITALS: BP 114/68
[2017-03-05] MEDS: IPRATROPIUM NEB FS 0.5 MG/2.5 ML AMPUL.NEB NEB SCH ×3 (01:36→13:30)
[2017-03-05] MEDS: ALBUTEROL FS 2.5 MG/0.5 ML VIAL.NEB NEB SCH ×3 (01:36→13:43)
[2017-03-05 04:00] VITALS: BP 131/76
[2017-03-05] MEDS: BLOOD SUGAR DIAGNOSTIC 1 EACH STRIP VI SCH ×4 (06:20→21:28)
[2017-03-05] MEDS: INSULIN REGULAR, HUMAN 100 UNIT/ML 3 ML VIAL SQ PRN ×3 (06:26→17:34)
--- NOTE | 2017-03-05 06:26 | NUR ---
BG 116 MG/DL, NO INSULIN COVERAGE
--- NOTE | 2017-03-05 06:32 | NUR ---
PATIENT IS ALERT AND AWAKE, NO RESPIRATORY DISTRESS, ABLE TO AMBULATE WITHOUT DIFFICULTY, DENIES ANY PAIN AT THIS TIME, SLEPT FOR 6.5 HOURS, COMPLIANT WITH BIPAP DURING SLEEP, NO ADVERSE CHANGE OF CONDITION DURING SHIFT, ALL DUE MEDICATIONS GIVEN, CALL LIGHT WITHIN REACH.
--- NOTE | 2017-03-05 07:30 | NUR ---
SERVICE CORRESPONDENT NOTES PT IN BED, ASLEEP, EASY TO AROUSE, ALERT AND ORIENTED, NO COMPLAINT OF PAIN OR SHORTNESS OF BREATH, CALL LIGHT WITHIN REACH, NEEDS ATTENDED.
[2017-03-05] MEDS: methylPREDNISolone SOD SUCC 125 MG/2ML VIAL IV SCH ×2 (08:36→17:25)
[2017-03-05] MEDS: FUROSEMIDE 40 MG/4 ML VIAL IV SCH ×2 (08:36→17:24)
[2017-03-05] MEDS: PANTOPRAZOLE 40 MG TABLET.DR PO SCH (08:37)
[2017-03-05] MEDS: ALLOPURINOL 100 MG TABLET PO SCH (08:37)
[2017-03-05] MEDS: CHOLECALCIFEROL 1,000 UNIT TABLET (VIT D3) PO SCH (08:37)
[2017-03-05] MEDS: NIFEdipine XL (30MG) 30 MG TAB PO SCH (08:37)
[2017-03-05] MEDS: METOPROLOL TARTRATE 50 MG TABLET PO SCH ×2 (08:37→17:00)
[2017-03-05] MEDS: GUAIFENESIN LA 600 MG TABLET.SA PO SCH ×2 (08:37→20:53)
[2017-03-05] MEDS: ASPIRIN 81 MG TAB.CHEW PO SCH (08:38)
[2017-03-05] MEDS: METFORMIN 500 MG TABLET PO SCH ×2 (08:38→17:25)
[2017-03-05] MEDS: LOSARTAN POTASSIUM 50 MG TABLET PO SCH (08:38)
[2017-03-05] MEDS: FAMOTIDINE (20 MG) 20 MG TABLET PO SCH (08:38)
[2017-03-05 08:52] VITALS: BP 133/57
[2017-03-05] MEDS: POTASSIUM CHLORIDE 10 MEQ TABLET.SA PO SCH ×2 (09:45→17:24)
[2017-03-05] MEDS ORDERED: GUAIFENESIN/CODEINE 10 ML UDC PO PRN (10:00)
[2017-03-05 10:14] LABS: CREATININE 1.1 mg/dL (0.6-1.3); MAGNESIUM 1.9 mg/dL (1.8-2.4); POTASSIUM 3.6 mmol/L (3.5-5.1)
--- NOTE | 2017-03-05 11:00 | NUR ---
STAPLE FIBER WASHER NOTES PT IN BED, AWAKE, ALERT AND ORIENTED, NO COMPLAINT OF PAIN OR ANY SHORTNESS OF BREATH, ON O2 SUPPLEMENT VIA NASAL CANULA, PT SEEN BY DR. HIDALGO, PLAN OF CARE DISCUSSED WITH PT, VERBALIZED UNDERSTANDING, CALL LIGHT WITHIN REACH.
[2017-03-05 16:00] VITALS: BP 107/61
--- NOTE | 2017-03-05 17:19 | NUR ---
MS RN NOTES Dr. Wade came seen and examined the patient and ordered to D/C telemetry. all orders carried out and noted. Will continue to monitor accordingly.
[2017-03-05] MEDS: LEVOFLOXACIN (500MG) 500 MG TABLET PO SCH (17:24)
--- NOTE | 2017-03-05 19:00 | NUR ---
RN MS NOTES PT IN BED, AWAKE, ALERT AND ORIENTED, SITTING IN HER CHAIR WATCHING TV, WITH COMPLAINT OF COUGH, ROBITUSSIN GIVEN ORDERED, NO SHORTNESS OF BREATH, PM MEDS GIVEN, ALL NEEDS ATTENDED.
[2017-03-05 20:31] VITALS: BP 129/78
[2017-03-05] MEDS: ENOXAPARIN SODIUM 40 MG/0.4 ML DISP.SYRIN SQ SCH (20:52)
[2017-03-05] MEDS: PRAMIPEXOLE DI-HCL 0.25 MG TABLET PO SCH (20:53)
[2017-03-05] MEDS: *INSULIN REGULAR(HUMULIN R)HUM 100 UNIT/ML VIAL SQ PRN (21:32)
[2017-03-05] MEDS ORDERED: IPRATROPIUM NEB FS 0.5 MG/2.5 ML AMPUL.NEB NEB PRN (22:30)
[2017-03-05] MEDS ORDERED: ALBUTEROL FS 2.5 MG/0.5 ML VIAL.NEB NEB PRN (22:30)
--- NOTE | 2017-03-05 22:52 | NUR ---
pt in no acute distress, expiratory wheeze, continue on oxygen 3 liter with spo2 93%. obtain new order for HHN prn, but pt not needed at this time,pt ready for bed and bipap placed. will continue to monitor,vss,afebrile.
--- NOTE | 2017-03-05 23:00 | NUR ---
MS TANVIR INITIAL NOTES CHECKED PT AFTER GOT REPORT FROM AM NURSE KAMI . PT SLEEPING COMFORTABLY IN BED IN SITTING POSITION , ON BI-PAP SET UP BU RT ORDERED. NO SIGNS OF ANY ACUTE DISTRESS NOTED. KEPT HER WARM AND COMFORTABLE AT ALL TIMES. PLACE CALL LIGHT AT REACH WILL CONTINUE TO MONITOR.
[2017-03-06] MEDS: TRAMADOL HCL 50 MG TABLET PO PRN ×3 (02:45→20:57)
[2017-03-06] MEDS: BLOOD SUGAR DIAGNOSTIC 1 EACH STRIP VI SCH ×4 (06:10→21:06)
--- NOTE | 2017-03-06 07:26 | NUR ---
MS GROUP EXERCISE INSTRUCTOR CLOSING NOTES PT REMAINS SLEEPING BUT AROUSES TO TOUCH, BLOOD SUGAR 108, NO INSULIN COVERAGE GIVEN NO SIGNS OF HYPO GLYCEMIA NOTED. STABLE GERTRUDIS THE NIGHT AND SLEPT WELL,. KEPT HER WARM AND COMFORTABLE AT ALL TIMES. PLACE CALL LIGHT AT REACH. ENDORSE TO AM NURSE FOR CONTINUITY OF CARE.
--- NOTE | 2017-03-06 07:30 | NUR ---
RN OPENING NOTES RECEIVED PATIENT IN BED, ASLEEP, HEAD OF BED ELEVATED, NO SOB OR DISTRESS NOTED. ALERT AND ORIENTED TIMES 4, VERBALLY RESPONSIVE AND AND ABLE TO MAKE NEEDS KNOWN. IV INTACT AND PATENT. KEPT PATIENT CLEAN AND COMFORTABLE IN BED, CALL LIGHT WITHIN PATIENT REACH. WILL CONTINUE TO MONITOR ACCORDINGLY
[2017-03-06 07:42] LABS: BASOPHILS % (AUTO) 0.3 % (0.0-2.0); EOSINOPHILS % (AUTO) 0.3 % (0.0-6.0); HEMATOCRIT 39 % (33-45); HEMOGLOBIN 12.5 g/dL (11.5-14.8); LYMPHOCYTES # (AUTO) 2.6 /CMM (0.8-4.8); LYMPHOCYTES % (AUTO) 18.4 % (20.0-44.0); MEAN CORPUSCULAR HEMOGLOBIN 24 PG (26.0-33.0); MEAN CORPUSCULAR HGB CONC 32 g/dl (31.0-36.0); MEAN CORPUSCULAR VOLUME 74 fL (82-100); MONOCYTES # (AUTO) 1.6 /CMM (0.1-1.30); MONOCYTES % (AUTO) 11.2 % (2.0-12.0); NEUTROPHILS # (AUTO) 9.8 /CMM (1.8-8.9); NEUTROPHILS % (AUTO) 69.8 % (43.0-81.0); PLATELET COUNT (AUTO) 325 /CMM (150-450); RDW COEFFICIENT OF VARIATION 20.1 (11.5-15.0)
[2017-03-06 08:00] VITALS: BP 98/63
[2017-03-06] MEDS: POTASSIUM CHLORIDE 10 MEQ TABLET.SA PO SCH ×2 (08:11→16:10)
[2017-03-06] MEDS: ALLOPURINOL 100 MG TABLET PO SCH (08:11)
[2017-03-06] MEDS: ASPIRIN 81 MG TAB.CHEW PO SCH (08:11)
[2017-03-06] MEDS: METFORMIN 500 MG TABLET PO SCH ×2 (08:11→16:10)
[2017-03-06] MEDS: PANTOPRAZOLE 40 MG TABLET.DR PO SCH (08:11)
[2017-03-06] MEDS: CHOLECALCIFEROL 1,000 UNIT TABLET (VIT D3) PO SCH (08:11)
--- NOTE | 2017-03-06 08:12 | NUR ---
RN NOTES PATIENT REPORTED PAIN IN THE CHEST AND BACK. TRAMADOL WAS GIVEN.
[2017-03-06] MEDS: FAMOTIDINE (20 MG) 20 MG TABLET PO SCH (08:13)
[2017-03-06] MEDS: GUAIFENESIN LA 600 MG TABLET.SA PO SCH ×2 (08:13→20:57)
[2017-03-06] MEDS: methylPREDNISolone SOD SUCC 125 MG/2ML VIAL IV SCH (08:17)
[2017-03-06] MEDS: FUROSEMIDE 40 MG/4 ML VIAL IV SCH ×2 (08:18→16:10)
[2017-03-06] MEDS: NIFEdipine XL (30MG) 30 MG TAB PO SCH (09:00)
[2017-03-06] MEDS: LOSARTAN POTASSIUM 50 MG TABLET PO SCH (09:00)
[2017-03-06 09:48] LABS: CALCIUM, SERUM 8.9 mg/dL (8.5-10.1); CREATININE 0.9 mg/dL (0.6-1.3); POTASSIUM 3.9 mmol/L (3.5-5.1)
[2017-03-06 16:00] VITALS: BP 121/75
[2017-03-06] MEDS: LEVOFLOXACIN (500MG) 500 MG TABLET PO SCH (16:10)
[2017-03-06] MEDS ORDERED: SILDENAFIL CITRATE 25 MG TABLET PO SCH (17:00)
[2017-03-06] MEDS: SILDENAFIL CITRATE 20 MG TABLET PO SCH (18:04)
[2017-03-06] MEDS: INSULIN REGULAR, HUMAN 100 UNIT/ML 3 ML VIAL SQ PRN (18:10)
--- NOTE | 2017-03-06 19:27 | NUR ---
RN CLOSING NOTES ALL NEEDS PROVIDED ATTENDED AND ANTICIPATED.KEPT PATIENT CLEAN AND COMFORTABLE IN BED, CALL LIGHT WITHIN PATIENT REACH, WILL CONTINUE TO MONITOR ACCORDINGLY. ENDORSED TO NEXT SHIFT RN TO CONTINUE CARE.
--- NOTE | 2017-03-06 19:30 | NUR ---
MS TANVIR INITIAL NOTES RECEIVED PT IN BED AWAKE AND ALERT SITTING ON HER BED WHILE WATCHING TV WITH O2 AT 3 LITERS VIA NC. NO SIGNS OF ANY ACUTE DISTRESS NOTED. PATIENT AWARE OF HER MEDICATION AND SHE ONLY ASKED HER PAIN MEDICATION WHICH IS ULTRAM. C-PAP ALREADY SET AND PATIENT AWARE. KEPT HER WARM AND COMFORTABLE AT ALL TIMES. WILL CONTINUE TO MONITOR. PLACE CALL LIGHT REACH.
[2017-03-06 20:00] VITALS: BP 140/82
[2017-03-06] MEDS: PRAMIPEXOLE DI-HCL 0.25 MG TABLET PO SCH (20:56)
[2017-03-06] MEDS: ENOXAPARIN SODIUM 40 MG/0.4 ML DISP.SYRIN SQ SCH (20:58)
--- NOTE | 2017-03-06 21:00 | NUR ---
MS TANVIR NOTES BLOOD SUGAR CHECKED DONE 90, NO SIGNS OF HYPO GLYCEMIA NOTED, SNACKS OFFERED BUT PT REFUSED. NO SOB NOTED. ROUTINE MEDS ALSO GIVEN AND ULTRAM ALSO GIVEN PER PT REQUESTED. KEPT HER COMFORTABLE AT ALL TIMES. PLACE CALL LIGHT AT REACH. WILL CONTINUE TO MONITOR.
--- NOTE | 2017-03-07 | NUR ---
MS TANVIR NOTES PT SLEEPING COMFORTABLY IN BED WITH NO SIGNS OF ANY ACUTE DISTRESS NOTED. STILL ON C-PAP . WILL CONTINUE TO MONITOR.
--- NOTE | 2017-03-07 03:00 | NUR ---
surgical aides teacher/notes Pt remains sleeping comfortably with bi-pap , no signs of any acute distress noted. kept her comfortable at all times. will continue to monitor. place call light at reach.
[2017-03-07] MEDS: BLOOD SUGAR DIAGNOSTIC 1 EACH STRIP VI SCH ×4 (06:31→21:57)
[2017-03-07 06:59] LABS: BASOPHILS # (AUTO) 0.1 /CMM (0.0-0.2); BASOPHILS % (AUTO) 0.5 % (0.0-2.0); EOSINOPHILS # (AUTO) 0.2 /CMM (0.0-0.7); EOSINOPHILS % (AUTO) 1.3 % (0.0-6.0); HEMATOCRIT 42 % (33-45); LYMPHOCYTES # (AUTO) 4.8 /CMM (0.8-4.8); LYMPHOCYTES % (AUTO) 29.7 % (20.0-44.0); MEAN CORPUSCULAR HEMOGLOBIN 23 PG (26.0-33.0); MEAN CORPUSCULAR HGB CONC 31 g/dl (31.0-36.0); MEAN CORPUSCULAR VOLUME 74 fL (82-100); MONOCYTES # (AUTO) 1.7 /CMM (0.1-1.30); MONOCYTES % (AUTO) 10.2 % (2.0-12.0); NEUTROPHILS # (AUTO) 9.5 /CMM (1.8-8.9); NEUTROPHILS % (AUTO) 58.3 % (43.0-81.0); PLATELET COUNT (AUTO) 315 /CMM (150-450); RED BLOOD CELL COUNT(AUTO) 5.59 MIL/uL (4.0-5.2); WHITE BLOOD COUNT (AUTO) 16.3 K/uL (4.3-11.0)
--- NOTE | 2017-03-07 07:19 | NUR ---
MS/RN AM NOTES RECEIVED PATIENT IN BED, AWAKE, ALERT, NO S/SX SOB, NO DISTRESS NOTED, OXYGEN VIA N/C DELIVERING 3L/M TOLERATING WELL, O2 SATURATION 98%, DENIES PAIN. IV MIDLINE FELICITA INTACT, PATENT. HOB ELEVATED 35 DEGREE, BED IN LOW POSITION, 2 SR UP FOR SAFETY, WITH CALL LIGHT WITHIN EASY REACH, WILL CONTINUE TO MONITOR ACCORDINGLY.
--- NOTE | 2017-03-07 07:30 | NUR ---
WOODWORKING MACHINE SETTER/CLOSING NOTES PT REMAINS SLEEPING COMFORTABLY IN BED WITHOUT ANY ACUTE DISTRESS NOTED. BLOOD SUGAR 75, NO SIGNS OF HYPO GLYCEMIA NOTED. DENIES ANY PAIN OR ANY DISCOMFORT.SLEPT WELL AFTER PAIN MEDS GIVEN. STABLE GERTRUDIS THE NIGHT. KEPT HER WARM AND COMFORTABLE AT ALL TIMES. PLACE CALL LIGHT AT REACH. ENDORSE TO AM NURSE.
[2017-03-07 08:00] VITALS: BP 123/76
--- NOTE | 2017-03-07 08:06 | NUR ---
pt awake...no c/o noted at this time...resting...pt c/o pain at this time...
[2017-03-07] MEDS ORDERED: methylPREDNISolone SOD SUCC 125 MG/2ML VIAL IV SCH (09:00)
[2017-03-07] MEDS: PANTOPRAZOLE 40 MG TABLET.DR PO SCH (09:12)
[2017-03-07] MEDS: POTASSIUM CHLORIDE 10 MEQ TABLET.SA PO SCH ×2 (09:12→17:36)
[2017-03-07] MEDS: FUROSEMIDE 40 MG/4 ML VIAL IV SCH ×2 (09:12→17:36)
[2017-03-07] MEDS: ASPIRIN 81 MG TAB.CHEW PO SCH (09:13)
[2017-03-07] MEDS: FAMOTIDINE (20 MG) 20 MG TABLET PO SCH (09:13)
[2017-03-07] MEDS: CHOLECALCIFEROL 1,000 UNIT TABLET (VIT D3) PO SCH (09:13)
[2017-03-07] MEDS: NIFEdipine XL (30MG) 30 MG TAB PO SCH (09:13)
[2017-03-07] MEDS: methylPREDNISolone SOD SUCC 40 MG/ML VIAL IV SCH (09:13)
[2017-03-07] MEDS: LOSARTAN POTASSIUM 50 MG TABLET PO SCH (09:14)
[2017-03-07] MEDS: GUAIFENESIN LA 600 MG TABLET.SA PO SCH ×2 (09:14→21:55)
[2017-03-07] MEDS: ALLOPURINOL 100 MG TABLET PO SCH (09:14)
[2017-03-07] MEDS: METFORMIN 500 MG TABLET PO SCH ×2 (09:14→17:00)
[2017-03-07] MEDS: TRAMADOL HCL 50 MG TABLET PO PRN ×2 (09:26→19:55)
[2017-03-07] MEDS: SILDENAFIL CITRATE 20 MG TABLET PO SCH ×3 (09:28→17:36)
[2017-03-07] MEDS ORDERED: MAG HYDROX/AL HYDROX/SIMETH 30 ML UDC PO ONE (09:30)
[2017-03-07 10:00] VITALS: BP 123/76
[2017-03-07 10:28] LABS: MAGNESIUM 2.2 mg/dL (1.8-2.4); POTASSIUM 3.8 mmol/L (3.5-5.1)
[2017-03-07 10:38] LABS: CALCIUM, SERUM 8.4 mg/dL (8.5-10.1)
--- NOTE | 2017-03-07 12:12 | NUR ---
MS/RN NOTES BLOOD SUGAR CHECKED, 140, NO COVERAGE GIVEN D/T PATIENT IS NPO FOR UPCOMING PULMONARY ANGIOGRAM PROCEDURE
[2017-03-07] MEDS ORDERED: IV NS 0.9% 250 ML IV ONE (12:48)
[2017-03-07] MEDS ORDERED: CT SWABBABLE VALVE TRANS SET 1 EA INFUS.SET MC ONE (12:49)
[2017-03-07] MEDS ORDERED: IOHEXOL-350 100 ML VIAL IV ONE (12:49)
--- NOTE | 2017-03-07 13:35 | NUR ---
MS/RN NOTES PATIENT IS BACK FROM PULMONARY ANGIOGRAM. IN STABLE CONDITION, WITH ORDER TO HOLD METFORMIN X 2 DAYS, AND RE-START AGAIN ON SATURDAY. NOTED, CARRIED OUT, WILL ENDORSE TO THE NEXT SHIFT ACCORDINGLY
[2017-03-07] MEDS: LEVOFLOXACIN (500MG) 500 MG TABLET PO SCH (14:10)
[2017-03-07 16:00] VITALS: BP 139/62
[2017-03-07] MEDS: INSULIN REGULAR, HUMAN 100 UNIT/ML 3 ML VIAL SQ PRN (17:35)
--- NOTE | 2017-03-07 18:15 | NUR ---
MS/RN NOTES BLOOD SUGAR CHECKED BEFORE DINNER, 133, REGULAR INSULIN GIVEN 2 UNITS PER SLIDING SCALE. NO CHANGES IN APPETITE. HELD METFORMIN D/T S/P ANGIOGRAM PROCEDURE. WILL ENDORSE TO THE NEXT SHIFT TO HOLD METFORMIN TILL 03/09/17 PM DOSE
--- NOTE | 2017-03-07 19:08 | NUR ---
MS/RN CLOSING NOTES PATIENT IS INI THE BED, NO SOB, NO DISTRESS NOTED, NO CHANGES NOTED DURING THE SHIFT, SATURATING WELL, WITH 02 3L/M VIA N/C, COMFORTABLE IN THE BED, HIGH FOWLERS POSITION, BED LOW, 2 SR UP FOR SAFETY. IV MIDLINE FELICITA INTACT, PATENT, NO S/SX INFECTION OR BLEEDING. NO S/SX HYPO OR HYPERGLYCEMIA NOTED. KEPT CLEAN DRY, COMFORTABLE ALL THE TIME, NEEDS MET IN TIMELY MANNER, WITH CALL LIGHT WITHIN EASY REACH. WILL ENDORSE TO THE DIAMOND DIE MAKER NURSE ACCORDINGLY
--- NOTE | 2017-03-07 19:22 | NUR ---
MS RN NOTES RECEIVED PT, SITTING UP IN BED, AWAKE, A/O X 4, VERBALLY RESPONSIVE . NO DISTRESS, NO SOB NOTED. RESPIRATION IS EVEN AND UNLABORED. ON REGULAR, CCHO DIET DAMIAN WELL. NO C/O PAIN OR DISCOMFORT AT THIS TIME. FELICITA MIDLINE, INTACT AND PATENT, NO S/S OF INFECTION NOTED. ALL NEEDS ATTENDE. KEPT COMFORTEBLE. CALL LIGHT WITHIN REACH. WILL CONTINUE TO MONITOR.
[2017-03-07 20:00] VITALS: BP 100/56
[2017-03-07] MEDS: PRAMIPEXOLE DI-HCL 0.25 MG TABLET PO SCH (21:55)
[2017-03-07 22:00] VITALS: BP 110/56
[2017-03-07] MEDS: ENOXAPARIN SODIUM 40 MG/0.4 ML DISP.SYRIN SQ SCH (22:00)
[2017-03-08] MEDS: BLOOD SUGAR DIAGNOSTIC 1 EACH STRIP VI SCH ×2 (06:08→12:18)
--- NOTE | 2017-03-08 06:13 | NUR ---
ACCU CHECK DONE, PT'S BS : 104 AT THIS TIME. PT ON CARDIAC DIET DAMIAN WELL. NO S/S OF HYPOGLYCEMIA NOTED. PER SLIDING SCALE, NO INSULIN COVERAGE NEEDED AT THIS TIME. WILL CONT TO MONITOR.
--- NOTE | 2017-03-08 06:44 | NUR ---
MS RN NOTES PT ASLEEP AT THIS TIME, AROUSES EASILY A/O X 4, VERBALLY RESPONSIVE . NO DISTRESS, NO SOB NOTED. RESPIRATION IS EVEN AND UNLABORED. ON REGULAR, CARDIAC DIET DAMIAN WELL. NO C/O PAIN OR DISCOMFORT AT THIS TIME. FELICITA MIDLINE, INTACT AND PATENT, NO S/S OF INFECTION NOTED. NO S/S OF HYPO/ HYPERGLYCEMIA NOTED. ALL NEEDS ATTENDED. KEPT COMFORTABLE. CALL LIGHT WITHIN REACH. WILL ENDORSE TO NEXT SHIFT FOR JERRI. .
--- NOTE | 2017-03-08 07:15 | NUR ---
MS/RN AM NOTES PATIENT IS IN THE BED, ASLEEP, WITH BIPAP, NO S/SX SOB, TOLERATING WELL, O2 SATURATION 98%, HOB ELEVATED HIGH FOWLERS POSITION. IV MIDLINE FELICITA INTACT, PATENT. WILL HOLD METFORMIN DIRECTED. BED IN LOW POSITION, 2 SR UP FOR SAFETY, WITH CALL LIGHT WITHIN EASY REACH, WILL CONTINUE TO MONITOR ACCORDINGLY.
[2017-03-08 08:00] VITALS: BP 124/71
[2017-03-08] MEDS: ALLOPURINOL 100 MG TABLET PO SCH (08:36)
[2017-03-08] MEDS: POTASSIUM CHLORIDE 10 MEQ TABLET.SA PO SCH (08:36)
[2017-03-08] MEDS: CHOLECALCIFEROL 1,000 UNIT TABLET (VIT D3) PO SCH (08:36)
[2017-03-08] MEDS: GUAIFENESIN LA 600 MG TABLET.SA PO SCH (08:36)
[2017-03-08] MEDS: FAMOTIDINE (20 MG) 20 MG TABLET PO SCH (08:36)
[2017-03-08] MEDS: ASPIRIN 81 MG TAB.CHEW PO SCH (08:36)
[2017-03-08] MEDS: methylPREDNISolone SOD SUCC 40 MG/ML VIAL IV SCH (08:36)
[2017-03-08] MEDS: NIFEdipine XL (30MG) 30 MG TAB PO SCH (08:36)
[2017-03-08] MEDS: PANTOPRAZOLE 40 MG TABLET.DR PO SCH (08:36)
[2017-03-08] MEDS: FUROSEMIDE 40 MG/4 ML VIAL IV SCH (08:38)
[2017-03-08] MEDS: LOSARTAN POTASSIUM 50 MG TABLET PO SCH (08:38)
[2017-03-08] MEDS: TRAMADOL HCL 50 MG TABLET PO PRN (08:38)
[2017-03-08] MEDS: METFORMIN 500 MG TABLET PO SCH (08:39)
[2017-03-08] MEDS: SILDENAFIL CITRATE 20 MG TABLET PO SCH ×2 (08:41→13:33)
[2017-03-08 10:00] VITALS: BP 124/71
[2017-03-08 10:14] LABS: CALCIUM, SERUM 8.8 mg/dL (8.5-10.1); MAGNESIUM 2.2 mg/dL (1.8-2.4); POTASSIUM 3.5 mmol/L (3.5-5.1)
[2017-03-08] MEDS: INSULIN REGULAR, HUMAN 100 UNIT/ML 3 ML VIAL SQ PRN (12:20)
--- NOTE | 2017-03-08 12:21 | NUR ---
MS/RN NOTES BLOOD SUGAR CHECKED, READING 270, REGULAR INSULIN COVERAGE 9 UNITS GIVEN SQ, PER SLIDING SCALE ORDERED, NO CHANGES WITH APPETITE
--- NOTE | 2017-03-08 13:46 | NUR ---
RN/MS DISCHARGE NOTES DISCHARGED PATIENT HOME, IN STABLE CONDITION, WITH , SHELLFISH SHUCKER ASSISTED, PORTABLE OXYGEN KEPT DELIVERING OXYGEN 3 L/M N/C ON THE WAY TO THE CAR. PATIENT HAS HER OWN OXYGEN WITH HER, IN THE CAR. NO S/SX SOB, NO DISTRESS, DENIES CHEST PAIN, SILDENAFIL GIVEN FOR P-Y HYPERTENSION NOON DOSE. VITAL SIGNS WITHIN NORMAL RANGE. MIDLINE REMOVED ASEPTICALLY. EXIT CARE PROVIDED, ENCOURAGED TO F/U WITH PCP WITHIN A WEEK, VERBALIZED UNDERSTANDING. FAXED MD'S PRESCRIPTION TO THE PHARMACY PER PATIENT'S REQUEST
== END 2017-03-08 13:39 | disposition home or self-care (01) | DRG 140 ==
LOC: ER 13:01 → MEDSG2 17:22 → TELE 22:30 → MED 03-05 17:20
PROVIDERS: ADMIT Internal Medicine; ATTEND Internal Medicine
PROC: 5A09457 Assistance with Respiratory Ventilation, 24-96 Consecutive Hours, Continuous Positive Airway Pressure (ICD-10-PCS; principal; 2017-03-03)
PROC: 05H533Z Insertion of Infusion Device into Right Subclavian Vein, Percutaneous Approach (ICD-10-PCS; principal; 2017-03-03)
PROC: B546ZZA Ultrasonography of Right Subclavian Vein, Guidance (ICD-10-PCS; principal; 2017-03-03)
DX: J44.0 Chronic obstructive pulmonary disease with (acute) lower respiratory infection (principal); J96.01 Acute respiratory failure with hypoxia; I50.33 Acute on chronic diastolic (congestive) heart failure; J18.9 Pneumonia, unspecified organism; I27.2 Other secondary pulmonary hypertension; E88.81 Metabolic syndrome and other insulin resistance; I11.0 Hypertensive heart disease with heart failure; E11.65 Type 2 diabetes mellitus with hyperglycemia; E66.2 Morbid (severe) obesity with alveolar hypoventilation; J44.1 Chronic obstructive pulmonary disease with (acute) exacerbation; J20.9 Acute bronchitis, unspecified; J45.909 Unspecified asthma, uncomplicated; G47.33 Obstructive sleep apnea (adult) (pediatric); J96.21 Acute and chronic respiratory failure with hypoxia; K21.9 Gastro-esophageal reflux disease without esophagitis; E11.9 Type 2 diabetes mellitus without complications; J45.901 Unspecified asthma with (acute) exacerbation; T38.0X5A Adverse effect of glucocorticoids and synthetic analogues, initial encounter; Z91.14 Patient's other noncompliance with medication regimen
CPT/HCPCS: 36415; 36569; 71010-TC; 80048-TC; 80053-TC; 80076-TC; 82962-TC; 83735-TC; 83880; 84484-TC; 85025-TC; 85730-TC; 87040-TC; 87081-TC; 93307-TC; 94660; 94799-TC; 97001-TC; A4606; J1650; J1815; J1940; J2920; J2930; J3475; J7050; Q9967; Z7610